=== PATIENT | female | born 1990 | race Asian ===

== ENCOUNTER 2024-03-05 16:47 | Outpatient (CLI) | payer OTHER, SELFPAY ==
[2024-03-05 17:06] LABS: Hemoglobin 12.7 g/dL (12.0-15.0); Mean Corpuscular HGB Conc 33.4 g/dl (32-36); Mean Corpuscular Hemoglobin 30.8 pg (26-34); Mean Corpuscular Volume 92.2 fl (80-100); Mean Platelet Volume 9.2 fl (7.4-10.4); Platelet Count Result 271 k/mm3 (150-375); Red Blood Count 4.12 M/mm3 (4.2-5.4); Red Cell Distribution Width 12.3 % (11.5-14.5); White Blood Count 7.4 K/mm3 (4.5-10.0)
[2024-03-05 17:17] LABS: Alanine Aminotransferase 12 U/L (6-35); Albumin Level 4.6 g/dL (3.5-5.1); Alkaline Phosphatase 56 U/L (38-126); Anion Gap 10 mmol/L (4-12); Aspartate Amino Transferase 20 U/L (14-36); Bilirubin,Total 0.3 mg/dL (0.2-1.3); Blood Urea Nitrogen 18 mg/dL (7-17); Calcium 9.1 mg/dL (8.4-10.2); Carbon Dioxide 29 mmol/L (22-30); Chloride 98 mmol/L (98-107); Estimated Glomerular Filt Rate > 60; Glucose 91 mg/dL (65-110); Potassium 4.3 mmol/L (3.4-5.0); Sodium 137 mmol/L (137-145)
[2024-03-05 17:58] LABS: HIV 1/2 Ab P24 Ag Result Negative (Negative)
[2024-03-05 18:21] LABS: Rubella IgG Antibody > 110.0 IU/ML
[2024-03-06 07:33] LABS: Rapid Plasma Reagin Non-Reactive (NonReactive)
[2024-03-06 15:13] LABS: Insulin Level Total 10.1 uIU/mL
[2024-03-07 02:09] LABS: FSH 3.2 mIU/mL; LH 3.6 mIU/mL; Prolactin 12.2 ng/mL
[2024-03-07 02:18] LABS: Progesterone 10.6 ng/mL
== END 2024-03-05 16:48 | disposition home or self-care (01) ==
LOC: ANHLAB 16:50
PROVIDERS: Visit Provider Obstetrics & Gynecology
DX: Z31.9 Encounter for procreative management, unspecified (principal)
CPT/HCPCS: 36415; 80053; 83001; 83002; 83525; 84144; 84146; 84443; 85027; 86592; 86703; 86762; 86787; G0432

== ENCOUNTER 2024-08-28 10:39 | Outpatient (CLI) | payer OTHER, SELFPAY ==
--- NOTE | ~2024-08-28 | XR_ITS ---
EXAMINATION: XR hysterosalpingogram DATE: 08/28/2024 12:20 INDICATION: Female infertility, unspecified. TECHNIQUE: Fluoroscopy was performed by the radiologist during contrast infusion into the endometrial cavity of the uterus by the primary physician. Fluoroscopy exposure time was 0.9 minutes. The total number of images was 9. FINDINGS: The intrauterine cavity is normal in morphology. The fallopian tubes are normal in caliber. There is normal free intraperitoneal spillage of contrast on both sides. IMPRESSION: 1. Normal hysterosalpingogram. Reviewed, dictated and finalized at location A. 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
[2024-08-28 11:29] LABS: Beta HCG Quantitative < 2.39 mIU/ML
== END 2024-08-28 10:40 | disposition home or self-care (01) ==
PROVIDERS: Visit Provider Obstetrics & Gynecology
DX: N97.9 Female infertility, unspecified (principal)
CPT/HCPCS: 36415; 58340; 74740; 84702; Q9967